=== PATIENT | male | born 1955 | race Caucasian/White ===

== ENCOUNTER 2018-06-24 09:22 | Emergency (ER) | payer MEDICARE, SELFPAY ==
[2018-06-24] VITALS (37 sets, daily range): BP systolic 104–124; BP diastolic 47–102; PULSE 88–134; RESP 18; TEMP 36.4–36.6; O2SAT 99–100
--- NOTE | 2018-06-24 09:55 | DI.RPTCT_ITS ---
SYMPTOM/DIAGNOSIS: ABDOMINAL PAIN VOMITING, HISTORY OF ABDOMINAL SURGERIES CT CHEST, ABDOMEN AND PELVIS: The study was carried out with intravenous administration of 100 cc Omnipaque 350. Image quality is degraded by patient motion. The lungs are unremarkable. There is no pleural effusion. Allowing for patient motion there is no evidence of gross embolic disease. The heart is not enlarged. There is no pericardial effusion. There is no evidence of an aortic aneurysm. The abdominal images are of suboptimal quality due to patient motion. The liver is grossly intact. The gallbladder is grossly intact. The pancreas and spleen appear unremarkable. There is a left renal cyst. The kidneys are otherwise unremarkable with no evidence of hydronephrosis. The adrenals are intact and normal. Air fluid level is noted in the stomach where there is a large quantity of fluid. No gross bowel activity is identified in the upper abdomen. There is nothing to suggest an acute appendix. There is no evidence of bowel obstruction. There is no evidence of free air or fluid in the intraperitoneal space. The bladder is unremarkable. The reproductive organs as visualized are unremarkable. Small bilateral fat containing inguinal hernias are identified. There are atherosclerotic changes involving the aorta without any evidence of an aneurysm. No acute bony abnormality is seen. SUMMARY: No acute abnormality is identified in the chest or abdomen. The examination is limited due to patient motion.
--- NOTE | 2018-06-24 09:56 | DI.RPTCT_ITS ---
SYMPTOM/DIAGNOSIS: CONFUSION, SLURRED SPEECH CT HEAD: A noncontrast enhanced examination was performed. There is no evidence of an intra or extra axial hemorrhage, mass or fluid collection. The ventricles are unremarkable. SUMMARY: No acute intracranial abnormality is seen.
[2018-06-24] MEDS: Ondansetron O.D.T. 4 MG TABEF PO (10:04)
[2018-06-24] MEDS: MORPHine 10 MG/ML VIAL 4 MG IVP (10:10)
[2018-06-24 10:30] LABS: Abs Immature Grans 0.26 k/cumm (0.0-0.09); HCT 46.4 % (40.0-50.0); HGB 15.7 g/dL (13.5-17.5); Mean Corp. HGB Concentration 33.8 g/dL (32.0-36.0); Mean Corpuscular Hemoglobin 30.9 pg (27.0-33.0); Mean Corpuscular Volume 91.3 fL (80-95); Mean Platelet Volume 10.8 fL (8.0-11.0); Platelet Count 437 x1000/uL (130-400); RBC 5.08 m/cumm (4.50-6.00); RBC Distribution Width 14.2 % (11.8-14.1)
[2018-06-24 10:44] LABS: Absolute Lymphocyte Count 1.23 k/cumm (1.2-3.4); Absolute Neutrophil Count 28.34 k/cumm (1.2-6.7); Atypical Lymphocytes % 0
[2018-06-24 10:45] LABS: Absolute Monocyte Count 1.23 k/cumm (0.11-0.7); Diff Comment Manual Differential
[2018-06-24 10:47] LABS: Lipase 898 U/L (73-393)
[2018-06-24 10:54] LABS: ALT 19 U/L (12-78); AST 10 U/L (15-37); Albumin 4.3 g/dL (3.4-5.0); Alkaline Phosphatase 129 U/L (46-116); Anion Gap 31.4 mmol/L (3-11); BUN 34 mg/dL (7-18); Bilirubin, Total 0.5 mg/dL (0.2-1.0); CO2 8.6 mmol/L (21.0-32.0); CREATININE 2.03 mg/dL (0.70-1.30); Calcium 9.4 mg/dL (8.5-10.1); Chloride 93 mmol/L (98-107); Estimated GFR 33.67 (mL/min/1.73m2); Potassium 5.2 mmol/L (3.5-5.1); Sodium 133 mmol/L (136-145); Total Protein 8.5 g/dL (6.4-8.2)
[2018-06-24 10:59] LABS: Glucose 647 mg/dL (70-100); Troponin I < 0.02 ng/mL (0.00-0.06)
[2018-06-24 11:00] LABS: Lactate-non-spesis 1.8 mmol/L (0.6-1.4)
[2018-06-24] MEDS: Ondansetron 4 MG/2 ML VIAL IVP (11:00)
[2018-06-24] MEDS: Ondansetron 4 MG/2 ML VIAL (11:02)
[2018-06-24 11:03] LABS: ETHANOL BLOOD < 3.0 mg/dL (<3)
[2018-06-24 11:04] LABS: HCO3 (Venous) 5 mmol/L (22-28); TCO2 (Venous) 5 mmol/L (22-29); pCO2 (Venous) 28 mm/Hg (34-47)
--- NOTE | 2018-06-24 11:05 | ED.GENADUL ---
Disposition Clinical Impression: Hyperglycemia, Metabolic acidosis, Pancreatitis, Dehydration Disposition: [facility] Medical Decision Making - Lab Data Laboratory Tests 06/24/18 06/24/18 06/24/18 10:00 10:00 10:00 WBC 30.80 H* RBC 5.08 Hgb 15.7 Hct 46.4 MCV 91.3 MCH 30.9 MCHC 33.8 RDW 14.2 H Plt Count 437 H MPV 10.8 Immature Gran % 0.0 Neutrophils % 92.0 Lymphocytes % 4.0 Monocytes % 4.0 Eosinophils % 0.0 Basophils % 0.0 Absolute Neutrophils 28.34 H Band Neutrophils 0.0 Absolute Lymphocytes 1.23 Absolute Monocytes 1.23 H Absolute Eosinophils 0.00 Absolute Basophils 0.00 Differential Comment Manual differential Atypical Lymphocytes 0 Sodium 133 L Potassium 5.2 H Chloride 93 L Carbon Dioxide 8.6 L Anion Gap 31.4 H BUN 34 H Creatinine 2.03 H Estimated GFR/1.73 m2 33.67 Glucose 647 H* Lactate Calcium 9.4 Total Bilirubin 0.5 AST 10 L ALT 19 Alkaline Phosphatase 129 H Troponin I < 0.02 Total Protein 8.5 H Albumin 4.3 Lipase 898 H Ethyl Alcohol < 3.0 06/24/18 10:00 WBC RBC Hgb Hct MCV MCH MCHC RDW Plt Count MPV Immature Gran % Neutrophils % Lymphocytes % Monocytes % Eosinophils % Basophils % Absolute Neutrophils Band Neutrophils Absolute Lymphocytes Absolute Monocytes Absolute Eosinophils Absolute Basophils Differential Comment Atypical Lymphocytes Sodium Potassium Chloride Carbon Dioxide Anion Gap BUN Creatinine Estimated GFR/1.73 m2 Glucose Lactate 1.8 H Calcium Total Bilirubin AST ALT Alkaline Phosphatase Troponin I Total Protein Albumin Lipase Ethyl Alcohol - Medical Decision Making This is a 62-year-old male who presents for evaluation of feeling ill. He has had some vomiting and diarrhea over the last 24 hours. He has not been drinking anything. He does have type 2 diabetes however he notably uses insulin. Does have a prior surgical history of an appendicitis where they did not remove the appendix per family. The patient does appear clinically ill at this time, and notably dehydrated. We will rehydrate, get a CT scan of his head chest abdomen and pelvis. Differential is broad and includes cardiac etiology, infectious etiology or stroke. The patient does have a stroke he does not demonstrate severe symptoms indicative of TPA at this time. His NIH score is 0, he shows no signs of focal neurologic deficit. And his last known well for his mild subjective confusion was last night. Patient's laboratory workup has returned notably concerning. He is notably acidotic with pH of 6.89, bicarb is 5. His white count is notably elevated greater than 30. Creatinine does demonstrate evidence of acute kidney injury. He is notably hyperglycemic. Although the patient is a type II diabetic I am concerned for severe dehydration on top of HHN K. I feel that it is less likely to be diabetic ketoacidosis secondary to his lack of type 1 diabetes. However due to his notable dehydration, he is acid-base status, as well as his profound dehydration we will treat for a DKA sort of picture. The patient will be given 3 L of fluid total at this point, will start insulin for his Accu-Chek that is greater than 600, his potassium is not low, I feel he will tolerate the insulin well in regards to this. Due to his notable low pH we will give bicarb. We will continue to monitor closely. Pending head CT as well as colin CT. lipase is mildly elevated and he does have mild pancreatitis. EK: 59 Rate 125, sinus tachycardia, intervals normal, no ST elevations or depressions. No T-wave inversions. EKG 10: 13 rate 101, sinus tachycardia, normal intervals aside for a slightly prolonged QTC at 487. No ST elevations or depressions. No T-wave inversions. CT scan results were called in by the radiologist, and no acute process is noted. There is some motion artifact, but no signs of acute abnormality in the head, no pneumonia in the chest, and no intra-abdominal pathology per radiology. The patient certainly has multiple medical issues at this time, and does require admission and my opinion and ICU level of care. We have no ICU beds currently available here. We will contact [facility] for potential transfer. I did discuss the case with Dr. Young, the [facility], he agrees with the assessment and plan. Patient will be admitted to [facility] ICU for further management. I have extensively reviewed the treatment plan with the patient. I have addressed all patient concerns at this time. I have also discussed the plan with the admitting physician and they agree with the current assessment and plan and have agreed to assume responsibility for the patient. All parties demonstrate verbal understanding and agreement with our assessment and plan at this time. There developed a significant issue in regards to the patient's transport. Because the patient was on an insulin infusion our local paramedics were unable to transport him. The paramedics that do have this capability are not working and are on vacation at this time. [facility] had no capability for transport from dark air or dark ground. Bed was confirmed, and there was greater than a 3 hour delay before any solution was even found. There were no transport options that we had available the patient continued to remain in the emergency department which is unsafe and inappropriate for the patient. On reevaluation of the patient's laboratory workup his blood glucose significantly decreased to less than 290. Because of this I do feel that it is appropriate to hold his insulin infusion for the time being as the patient does demonstrate a notable clinical improvement. I did feel that he was in the patient's best interest to get the patient to the appropriate care facility for further treatment with no intensive care unit options available here. Pausing the insulin drip I feel was well within the limits of reasonable medical care as his sugar had been significantly dropping, his clinical status had improved. Initially [facility] felt that it was best to maintain the insulin drip, however after he had a discussion with Ward Lemus, in the ICU medical care team, it was decided that it was certainly within reason to hold the insulin drip for brief patient transport to the tertiary care facility where he could receive the continued care that he needed. History of Present Illness - General Chief complaint: Nausea/Vomit/Diar Stated complaint: ABD PAIN Time Seen by Provider: 06/24/18 09:54 - History of Present Illness Initial comments: This is a 62-year-old male with past medical history of type 2 diabetes for which she takes insulin, as well as previous appendicitis which she did not have surgically repaired secondary to his frailty. He presents today for feelings of malaise, he has been vomiting since yesterday, has felt fatigued, has had 15 episodes of diarrhea since this morning. He has admitted to mild generalized abdominal pain. Family has also mentioned notable change in mental status, with some slurring of speech noted when he woke up, as well as some mild confusion. No weakness of any focal extremity though. Last known well was last night. Patient does admit to some mild chest pain, but denies any cough, or fevers. He has no other complaints at this time. He has not drunk much at all for the last 24 hours. Patient denies any IV or illicit drug use. He does have a tobacco history in the past. He denies any pertinent family history. - Related Data Aspirin 325 mg PO DAILY 06/24/18 Cholecalciferol (Vitamin D3) [Vitamin D3] 400 mg PO DAILY 06/24/18 Enalapril [Vasotec] 2 tab PO DAILY 06/24/18 Fluticasone/Salmeterol [Advair 250/50 Diskus] 1 puff IH BID 06/24/18 Fluticasone/Salmeterol [Advair 250/50 Diskus] 1 puff IH DAILY 06/24/18 Fluticasone/Salmeterol [Advair 250/50 Diskus] 60 each IH DAILY 06/24/18 Insulin Aspart [Novolog] 10 - 15 unit SC AC 06/24/18 Insulin Glargine,Hum.rec.anlog [Lantus] 60 unit .ROUTE HS 06/24/18 Omeprazole 1 tab PO DAILY 06/24/18 Pravastatin Sodium 40 mg PO DAILY 06/24/18 metFORMIN [Glucophage] 2 tab PO BID 06/24/18 Allergies Allergy/AdvReac Type Severity Reaction Status Date / Time No Known Allergies Allergy Unverified 06/24/18 09:34 Review of Systems Other: 10 point review of systems was performed, pertinent positives and negatives are noted in the history of present illness. General Exam - Other Other exam information: 1.Const: Patient appears acutely ill, notably dehydrated 2.Eyes: PERRL, no conjunctival injection, and symmetrical lids. 3.ENT: Atraumatic external nose and ears. Notably dry mucous membranes. Neck: Symmetric, trachea midline, No thyromegaly. No facial asymmetry 4.CVS: +S1/S2, No murmurs or gallops. Peripheral pulses 2+ and equal in all extremities. Brisk capillary refill in all extremities. 5.RESP: Unlabored respiratory effort. Clear to auscultation bilaterally. No wheezes rales or rhonchi 6.GI: Soft, no guarding or rebound, mild tenderness throughout. No focal tenderness. 7.MSK: Normocephalic/Atraumatic, Extremities w/o deformity or ttp No cyanosis or clubbing, Normal movement of all extremities 8.Skin: Warm, Dry. No rashes or lesions. 9.Neuro: ignition specialist II-XII grossly intact. Sensation grossly intact, no focal neurologic deficits. 10.Psych: (AAO) x3. Patient's speech is slightly garbled, but does appear normal to me. Family states that this is not his baseline though. His mentation does appear relatively clear though. Course Vital Signs - 24 hr 06/24/18 06/24/18 06/24/18 09:28 09:46 09:47 Temperature 36.4 C L Pulse 109 H 97 H Respiratory 18 Rate Blood Pressure 104/52 106/61 Pulse Oximetry 100 100 100 06/24/18 06/24/18 06/24/18 09:50 10:00 10:01 Temperature Pulse 101 H Respiratory Rate Blood Pressure 118/56 Pulse Oximetry 100 100 99 06/24/18 06/24/18 06/24/18 10:16 10:17 10:20 Temperature Pulse 101 H Respiratory Rate Blood Pressure 111/58 Pulse Oximetry 100 100 06/24/18 06/24/18 10:30 10:31 Temperature Pulse 96 H Respiratory Rate Blood Pressure 107/47 Pulse Oximetry 100 100
[2018-06-24] MEDS: Normal Saline 2,000 ML 1000 ML IV (11:08)
[2018-06-24] MEDS: Insulin REGULAR-Human 100 UNITS/ML UNIT 30 UNITS SC (11:12)
[2018-06-24 11:13] LABS: pH (Venous) 6.89 (7.32-7.43); pO2 (Venous) 34 mm/Hg (28-44)
[2018-06-24 11:14] LABS: Ammonia 35 umol/L (11-32); O2 Sat (Venous) 58 % (70-80)
[2018-06-24] MEDS: Sodium Bicarbonate 50 MEQ/50 ML SYR IVP (11:40)
[2018-06-24] MEDS: Omnipaque 350 MG/ML 100 ML BTL IV (11:48)
[2018-06-24 11:50] LABS: RBC Morphology Normal
[2018-06-24 12:25] LABS: Bilirubin Small (Negative); Blood Small (Negative); Clarity Clear; Glucose 500 mg/dL (Negative); Ketones >=160 mg/dL (Negative); Leukocyte Esterase Negative (Negative); Nitrite Negative (Negative); Urobilinogen 0.2 EU/dL (Up TO 0.2)
[2018-06-24 12:51] LABS: Bacteria Moderate HPF (Negative); C & S Indicated? C&S Done As Ordered; Casts Negative LPF (Negative); Crystals Negative HPF (Negative); Epithelial Cells Negative HPF (Negative); Mucus Moderate (Negative); Other Cells Negative (Negative); WBC Negative HPF (0-5)
[2018-06-24] MEDS: Normal Saline 1,000 ML 150 ML IV (14:00)
== END 2018-06-24 15:25 | disposition short-term general hospital (02) ==
PROVIDERS: Emergency Provider Student in an Organized Health Care Education/Training Program
DX: E11.65 Type 2 diabetes mellitus with hyperglycemia (principal); Z79.4 Long term (current) use of insulin; E87.2 Acidosis; K85.90 Acute pancreatitis without necrosis or infection, unspecified; E86.0 Dehydration; N17.9 Acute kidney failure, unspecified; Z86.73 Personal history of transient ischemic attack (TIA), and cerebral infarction without residual deficits
CPT/HCPCS: 70450; 71260; 74177; 93005; 96361; 96365; 96366; 96372; 96375; 99285 ×2; J0696; J2270; J2405; 36415; 36416; 80053; 82805; 82962; 83690; 87040; 80320; 81003; 81015; 82140; 83605; 84484; 85025; 87086; 93010; J3490